=== PATIENT | male | born 2000 | race Caucasian/White ===

== ENCOUNTER 2024-09-27 14:08 | Emergency (ER) | payer OTHER ==
[~2024-09-27] VITALS: Ht 188 cm; Wt 100.3 kg
[2024-09-27 15:39] LABS: INR 0.9; PROTHROMBIN TIME 12.4 SECONDS (12.5-14.5)
[2024-09-27 16:10] LABS: CK-MB VALUE MASS < 1.0 NG/ML (<3.6)
[2024-09-27 16:11] LABS: CK-MB VALUE MASS < 1.0 NG/ML (<3.6)
[2024-09-27 16:12] LABS: ALBUMIN 4.9 G/DL (3.2-5.2); ALKALINE PHOSPHATASE 70 U/L (40-129); ALT/SGPT 31 U/L (7.0-40); AST/SGOT 23 U/L (<34); BILIRUBIN,DIRECT 0.2 MG/DL (<0.4); BILIRUBIN,TOTAL 0.7 MG/DL (0.3-1.2); BLOOD UREA NITROGEN 17 MG/DL (9-23); CALCIUM LEVEL 9.6 MG/DL (8.5-10.1); CARBON DIOXIDE LEVEL 28 MMOL/L (20-31); CHLORIDE LEVEL 106 MMOL/L (98-107); CREATININE FOR GFR 0.98 MG/DL (0.70-1.30); GLOMERULAR FILTRATION RATE > 90.0 (>60); GLUCOSE, FASTING 91 MG/DL (60-100); POTASSIUM SERUM 4.4 MMOL/L (3.5-5.1); SODIUM LEVEL 142 MMOL/L (136-145); TOTAL PROTEIN 8.1 G/DL (5.7-8.2)
[2024-09-27 16:14] LABS: CPK CREATINE PHOSPHOKINASE 235 U/L (46-171); MB/CK RELATIVE INDEX 0.42 (< OR =4)
[2024-09-27 16:14] LABS: THYROID STIMULATING HORMONE 1.216 uIU/ML (0.55-4.78); THYROXINE (T4) 7.8 UG/DL (4.5-10.9)
[2024-09-27 16:16] LABS: CPK CREATINE PHOSPHOKINASE 259 U/L (46-171); MB/CK RELATIVE INDEX 0.38 (< OR =4)
[2024-09-27 16:37] LABS: BASO % 0.4 % (0.0-1.0); EOS # 0.1 10^3/uL (0.0-0.5); EOS % 1.3 % (0.0-3.0); HEMATOCRIT 41.4 % (42.0-52.0); HEMOGLOBIN 15.3 g/dl (13.5-17.5); LYMPH # 1.6 10^3/uL (1.5-5.0); LYMPH % 23.4 % (24.0-44.0); MEAN CORPUSCULAR HEMOGLOBIN 33.5 pg (27.0-33.0); MEAN CORPUSCULAR VOLUME 90.6 fl (80.0-96.0); MONO # 0.8 10^3/uL (0.0-0.8); MONO % 11.8 % (2.0-8.0); NEUTROPHILS # 4.3 10^3/uL (1.5-8.5); PLATELET COUNT, AUTOMATED 240 10^3/uL (150-450); RED BLOOD COUNT 4.57 10^6/uL (4.30-6.10); WHITE BLOOD COUNT 6.9 10^3/uL (4.0-10.0)
[2024-09-27 17:04] VITALS: BP 122/62; TEMP 97.7; O2SAT 100
== END 2024-09-27 17:06 | disposition home or self-care (01) ==
LOC: M ED 14:08
DX: J02.9 Acute pharyngitis, unspecified (principal)